=== PATIENT | female | born 1975 | race Hispanic/Latino ===

== ENCOUNTER 2017-09-04 21:00 | Emergency (ER) | payer SELFPAY ==
[~2017-09-04] VITALS: Ht 165.1 cm; Wt 75.7 kg
[2017-09-04] MEDS ORDERED: MECLIZINE HCL 12.5 MG TAB PO ONE (21:30)
[2017-09-04 22:20] VITALS: BP 121/88
== END 2017-09-04 22:33 | disposition home or self-care (01) ==
LOC: ER 21:00
DX: R42 Dizziness and giddiness (principal); H92.01 Otalgia, right ear; H81.11 Benign paroxysmal vertigo, right ear
CPT/HCPCS: 93005; 99282

== ENCOUNTER 2018-06-05 14:26 | Emergency (ER) | payer SELFPAY ==
[~2018-06-05] VITALS: Ht 165.1 cm; Wt 75.7 kg
[2018-06-05] MEDS ORDERED: BENADRYL25 M1 PO (14:53)
[2018-06-05] MEDS ORDERED: FAMOTIDINE20 MG PO (14:53)
[2018-06-05] MEDS ORDERED: PREDNISONE20 MG PO (14:53)
== END 2018-06-05 16:46 | disposition home or self-care (01) ==
LOC: ER 14:26
DX: L23.7 Allergic contact dermatitis due to plants, except food (principal)
CPT/HCPCS: 99282

== ENCOUNTER 2018-06-13 14:55 | Emergency (ER) | payer SELFPAY ==
[~2018-06-13] VITALS: Ht 165.1 cm; Wt 75.7 kg
[~2018-06-13 14:55] MED LIST: BENADRYL25 M1 PO; FAMOTIDINE20 MG PO; PREDNISONE20 MG PO
== END 2018-06-13 18:10 | disposition home or self-care (01) ==
LOC: ER 14:55
DX: R21 Rash and other nonspecific skin eruption (principal)
CPT/HCPCS: 99282

== ENCOUNTER 2019-09-18 00:19 | Emergency (ER) | payer SELFPAY ==
[~2019-09-18] VITALS: Ht 165.1 cm; Wt 75.7 kg
--- NOTE | 2019-09-18 01:38 | Emergency Department Note ---
History of Present Illnes History of Present Illness Chief Complaint: COVID PUI History of Present Illness This is a 43 year old female PRESENTS TO THE ER C/O HEADACHE, COUGH AND FEVER/CHILLS ONSET X3 DAYS HEAD [employer]; PT DENIES CP OR SOB; REPORTS PT'S MOTHER IN LAW TESTED POSITIVE; NAD NOTED AT THIS TIME; RESP EVEN/UNLABORED; SKIN WARM, DRY AND WNL FOR PT; SPO2 100% RA; . Historian: Patient Arrival Mode: Car Onset (how long ago): day(s) (3) Location: ALL OVER Quality: FEVER, CHILLS, COUGH, BODY ACHES Radiation: Reports non-radiation Severity: mild Onset quality: gradual Duration (how long): day(s) (3) Progression: worsening Chronicity: new Context: Reports recent illness Relieving factors: none Exacerbating factors: none Associated symptoms: Reports cough, Reports fever/chills Treatments prior to arrival: none Past Medical/Family History Physician Review I have reviewed the patient's past medical and family history. Any updates have been documented here. Past Medical History Recent Fever: No Clinical Suspicion of Infectio: No New/Unexplained Change in Ment: No Past Medical History: None Other Medical History: EAR INFECTION Past Surgical History: None Social History Smoking Cessation: Never Smoker Alcohol Use: Social Any Illegal Drug Use: No Physically hurt or threatened: No Other Last Tetanus: UNKNOWN Any Pre-Existing Lines (PICC,: No Review of Systems Review of Systems Constitutional: Reports as per HPI EENTM: Reports no symptoms Cardiovascular: Reports no symptoms Respiratory: Reports as per HPI Gastrointestinal: Reports no symptoms Genitourinary: Reports no symptoms Musculoskeletal: Reports no symptoms Integumentary: Reports no symptoms Neurological: Reports no symptoms Psychological: Reports no symptoms Endocrine: Reports no symptoms Hematological/Lymphatic: Reports no symptoms Physical Exam Related Data Allergies: Coded Allergies: No Known Allergies (Unverified , 06/13/18) Triage Vital Signs Vital Signs Date Time Temp Pulse Resp B/P (MAP) Pulse Ox O2 Delivery O2 Flow Rate FiO2 09/18/19 01:12 100.1 96 18 119/80 100 Room Air Vital signs reviewed: Yes Physical Exam CONSTITUTIONAL Constitutional: Present well-developed, Present well-nourished HENT HENT: Present normocephalic, Present atraumatic, Present oropharynx clear/moist, Present nose normal HENT L/R: Present left ext ear normal, Present right ext ear normal EYES Eyes: Reports PERRL, Reports conjunctivae normal NECK Neck: Present ROM normal PULMONARY Pulmonary: Present effort normal, Present breath sounds normal CARDIOVASCULAR Cardiovascular: Present regular rhythm, Present heart sounds normal, Present c apillary refill normal, Present normal rate GASTROINTESTINAL Abdominal: Present soft, Present nontender, Present bowel sounds normal GENITOURINARY Genitourinary: Present exam deferred SKIN Skin: Present warm, Present dry MUSCULOSKELETAL Musculoskeletal: Present ROM normal NEUROLOGICAL Neurological: Present alert, Present oriented x 3, Present no gross motor or sensory deficits PSYCHOLOGICAL Psychological: Present mood/affect normal, Present judgement normal Assessment & Plan Medical Decision Making MDM PT WITH PRESUMED COVID 19 DISCHARGED WITH [facility], GIVEN [facility] INFO TO OBTAIN A COVID 19 TEST, INSTRUCTED TO SLEEP ON STOMACH OR SIDE, NOT ON BACK Assessment & Plan Final Impression: (1) COVID-19 Depart Disposition: HOME, SELF-CARE Last Vital Signs Date Time Temp Pulse Resp B/P (MAP) Pulse Ox O2 Delivery O2 Flow Rate FiO2 09/18/19 01:12 100.1 96 18 119/80 100 Room Air Home Meds Active Scripts Prednisone (PREDNISONE) 20 Mg Tab, 40 MG PO DAILY for 5 Days, #5 TAB Prov:WESLY MOONEY, DO 06/05/18 Famotidine (FAMOTIDINE) 20 Mg Tab, 20 MG PO DAILY for 14 Days, #14 TAB Prov:WESLY MOONEY, DO 06/05/18 Diphenhydramine Hcl (BENADRYL) 25 Mg Capsule, 25 MG PO Q6H for 5 Days, #20 Prov:WESLY MOONEY DO 06/05/18 JORGE DUNAWAY MD Sep 18, 2019 01:38
== END 2019-09-18 01:43 | disposition home or self-care (01) ==
LOC: ER 01:00
DX: U07.1 COVID-19 (principal); R50.9 Fever, unspecified; R05 Cough
CPT/HCPCS: 99282